=== PATIENT | female | born 1955 | race Caucasian/White ===

== ENCOUNTER → 2020-04-08 13:39 | Outpatient (BNVA) | payer OTHER, SELFPAY | PROVIDERS: Visit Provider Orthopaedic Surgery ==

== ENCOUNTER 2020-10-07 09:15 | Outpatient (REF) | payer OTHER, SELFPAY ==
--- NOTE | ~2020-10-07 | XR_ITS ---
EXAMINATION: XR KNEE, RIGHT 2 VIEWS XR KNEES, BILATERAL, WEIGHTBEARING AP CLINICAL INFORMATION: Pain COMPARISON: 11/13/2019 XR/XR knee RT 2V FINDINGS/IMPRESSION: Right total knee arthroplasty with patellar resurfacing. Components in expected positions. 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 Small right knee joint effusion. Left knee joint spaces preserved.
--- NOTE | ~2020-10-07 | XR_ITS ---
EXAMINATION: XR KNEE, RIGHT 2 VIEWS XR KNEES, BILATERAL, WEIGHTBEARING AP CLINICAL INFORMATION: Pain COMPARISON: 11/13/2019 XR/XR knee standing BI FINDINGS/IMPRESSION: Right total knee arthroplasty with patellar resurfacing. Components in expected positions. 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 Small right knee joint effusion. Left knee joint spaces preserved.
== END 2020-10-07 09:16 | disposition home or self-care (01) ==
LOC: HO.HOSX 09:15
PROVIDERS: Visit Provider Orthopaedic Surgery
DX: Z96.651 Presence of right artificial knee joint (principal)
CPT/HCPCS: 73560; 73565

== ENCOUNTER 2023-02-19 12:09 | Outpatient (AMB) | payer BC, SELFPAY ==
--- NOTE | 2023-02-19 12:12 | A.OFFVIS_ITS ---
Intake Vital Signs 02/19/23 12:13 Height 5 ft 4.5 in Weight 122 lb BMI 20.6 Intake Visit Reasons: OV RLE increased discomfort, HX Rt TKA 09/30/19 NE Intake Note: Jessie is a 67 year old female who presents today for a follow up s/p Rt TKA 09/30/19 NE. She complains of increased pain/discomfort. Patent reports that for about 1 months now she has been feeling significant soreness of the right knee. She describes this as a chronic discomfort. She has trouble going down stairs as the right knee feels unstable/weak. She has tried taking ibuprofen but does not want to take it too often. She does have some good days, but overall feels that this is limiting her daily actives Allergies No Known Allergies [No Known Allergies*] Allergy (Verified 04/08/20 13:41) HPI OV RLE increased discomfort, HX Rt TKA 09/30/19 NE HPI Details Jessie is a 67 year old woman who presents with complaints of right knee pain. She complains of pain with daily activity, which she describes as chronic discomfort . She says her pain has been worsening for ~1 month now. She finds going downstairs particularly difficult as she feels her knee is weak, and she has to use stairs one foot at a time. She feels limited in her daily activities by her pain. She denies any falls or known injury, and says her knee just began to feel sore . She also complains of clicking in her knee. She takes Ibuprofen sparingly as she has a hx of GI upset with NSAIDS. She is willing to take NSAIDs if they will help her. She tries to stay active with a stationary bicycle, which is now difficult for her. She used to use this every morning, with a break on the weekends, but she has not been able to use her bike since her pain began. She has a hx of right TKA, DOS: 09/30/19 and was doing very well post- operatively. She was very happy with the results of her surgery until her pain began. [facility] Surgical History (Updated 04/08/20 @ 13:59 by Ramirez Bolivar MD) History of total right knee replacement (09/30/19) History of partial colectomy History of section Family History Son No problems noted. Daughter No problems noted. Review of Systems Const All systems reviewed & are unremarkable except as noted in HPI and below Physical Exam Vital Signs: BMI result Body Mass Index 20.6 Const General: no acute distress, alert and awake Orientation/consciousness: patient oriented x3 HEENT Head: Yes normocephalic and Yes atraumatic Eyes EOM: EOMs intact bilaterally Resp Effort & Inspection: normal respiratory effort and able to speak in complete sentences Cardio Jugular venous distension: no JVD Skin General skin exam: turgor normal Rashes: no rashes Neuro General: patient oriented x3 Extrem Other: Full ROM rightk nee with well healed incision Trace posterior fullness Psych Appearance: grossly normal Affect: normal affect Attitude: cooperative Assessment & Plan Assessment & Plan (1) History of total right knee replacement: Onset Date: 09/30/19 Code(s): Z96.651 - Presence of right artificial knee joint Plan: Her knee appears normal with no objective findings. I wrote an rx for celebrex. If pain does not resolve should return to see me. Plan Scribed for Ramirez Bolivar MD by Gus Garcia, emergency medical service coordinator, on 02/19/23 at 12:45 PM, EST. Medications: New celecoxib (Celebrex) 200 mg PO DAILY 30 caps 2RF Coding Level of Care Code Est Pt Level 3 (61394) Diagnoses History of total right knee replacement Z96.651
[2023-02-19 12:13] VITALS: BMI 20.6
== END 2023-02-19 12:33 | disposition home or self-care (01) ==
PROVIDERS: Visit Provider Orthopaedic Surgery
DX: M25.561 Pain in right knee (principal); Z96.651 Presence of right artificial knee joint
CPT/HCPCS: 99214

== ENCOUNTER → 2023-02-19 12:09 | Outpatient (BNVA) | payer BC, SELFPAY | PROVIDERS: Visit Provider Orthopaedic Surgery ==